=== PATIENT | female | born 1965 | race Caucasian/White ===

== ENCOUNTER → 2022-08-04 11:27 | Outpatient (CLI) | payer OTHER, SELFPAY | PROVIDERS: Family Provider Family Medicine; PCP Family Medicine; Visit Provider Nurse Practitioner Family | DX: R30.0 Dysuria (principal) | CPT/HCPCS: 87077; 87086; 87186 ==

== ENCOUNTER 2023-05-31 20:05 | Emergency (ER) | payer OTHER, SELFPAY ==
[2023-05-31] VITALS (9 sets, daily range): BP systolic 120–147; BP diastolic 56–68; PULSE 70–82; RESP 20–31; TEMP 37.2–38.3; O2SAT 94–96; BMI 32.9
[2023-05-31 20:47] LABS: Squamous Epithelial Cell Urine 0-1 /HPF (0-5/HPF); WBC Urine 1-5/HPF (0-5/HPF)
[2023-05-31 20:48] LABS: Bacteria Urine Occasional (0-1); Culture Indicated Urine Cult Not Indicated; RBC Urine 5-10/HPF (0-5/HPF)
[2023-05-31 21:07] LABS: Influenza A - CEPHEID Flu A NEGATIVE (NEGATIVE); Influenza B - CEPHEID Flu B NEGATIVE (NEGATIVE); Respiratory Syncytial Virus Negative (Negative)
[2023-05-31 21:09] LABS: COVID-19 CEPHEID 4-PLEX PCR Negative (Negative)
[2023-05-31 21:32] LABS: Strep Grp A by PCR Rapid Negative (Negative)
--- NOTE | 2023-05-31 21:38 | DI.RAD.S_ITS ---
PROCEDURE: XR CHEST 2V INDICATIONS: fever, TECHNIQUE: 2 views of the chest were acquired. COMPARISON: CR, XR CHEST 1 VIEW, 07/06/2019, 3:07. CR, XR CHEST 1 VIEW, 07/07/2019, 5:54. FINDINGS: Surgical changes and devices: Sternotomy and CABG. Lungs and pleura: Mild chronic pulmonary interstitial prominence. No focal consolidation. No pleural effusions or pneumothorax. Mediastinum: Mediastinal contours are normal. Heart size is normal. Bones and chest wall: No suspicious bony abnormalities. Soft tissues appear unremarkable. IMPRESSION: No acute cardiopulmonary abnormality is seen. Dictated by: Junior Hernandez M.D. on 05/31/2023 at 22:07 Approved by: Junior Hernandez M.D. on 05/31/2023 at 22:08
[2023-05-31 21:53] LABS: Add Manual Diff / Slide Review NO; Basophils Absolute Auto 100 /uL (0-100); Basophils Percent Auto 0.8 % (0-2); Eosinophils Absolute Auto 100 /uL (0-450); Eosinophils Percent Auto 0.7 % (2-4); Hematocrit 37.4 % (36-46); Hemoglobin 12.4 g/dL (12.0-16.0); Lymphocytes Absolute Auto 2100 /uL (1100-4500); Lymphocytes Percent Auto 17.4 % (25-40); Mean Corpuscular HGB Conc 33.1 % (30-36); Mean Corpuscular Hemoglobin 28.5 PG (26-34); Mean Corpuscular Volume 85.9 fL (80-100); Monocytes Absolute Auto 1300 /uL (0-900); Neutrophils Absolute Auto 8600 /uL (1500-7000); Neutrophils Percent Auto 70.1 % (50-75); Platelet Count 287 X10^3/uL (150-400); Red Blood Cell Count 4.35 X10^6/uL (4.0-5.2); Red Cell Distribution Width 13.8 % (11.6-14.8); White Blood Cell Count 12.2 X10^3/uL (4.5-11.0)
[2023-05-31 22:03] LABS: Alanine Aminotransferase 43 IU/L (<35); Albumin 4.2 g/dL (3.5-5.0); Albumin Globulin Ratio 1.2 (1.0-2.8); Alkaline Phosphatase 71 U/L (38-126); Aspartate Aminotransferase 40 IU/L (14-36); Bilirubin Total 0.9 mg/dL (0.2-1.3); Blood Urea Nitrogen 12 mg/dL (7-17); Calcium 9.6 mg/dL (8.4-10.2); Carbon Dioxide 25 mmol/L (22-32); Chloride 104 mmol/L (98-107); Estimated Glomerular Filt Rate > 60 mL/min (>60); Globulin 3.4 g/dL (1.7-4.1); Glucose 133 mg/dL (70-100); HEMOLYSIS < 15 (0-50); Potassium 3.7 mmol/L (3.4-5.1); Sodium 138 mmol/L (137-145); Total Protein 7.6 g/dL (6.3-8.2)
[2023-05-31 22:14] LABS: NT-proBNP (BNP-Adult 18+) 475 pg/mL (<125); Troponin I < 0.012 ng/mL (0.01-0.034)
--- NOTE | 2023-05-31 23:25 | ED.GENADULT ---
HPI - General Adult General Chief complaint: Fever Stated complaint: sick T-4/ neck stiff, fever Time Seen by Provider: 05/31/23 21:10 Source: patient Mode of arrival: Family Vehicle History of Present Illness HPI narrative: 57-year-old woman with a history of hypertension and hyperlipidemia presents with 4-5 days of viral type symptoms that seem to be getting worse. She complains of fatigue, dyspnea, neck pain related to her shoulder pain, headaches. She feels that she is been getting worse with fevers for the last 4 days. She describes no cough, no photophobia, does not have any nuchal rigidity, no nausea vomiting or diarrhea, no abdominal pain she has not noticed any rashes. There is no dysuria flank pain or vaginal discharge. Related Data Home Medications Medication Instructions Recorded Confirmed atorvastatin 10 mg tablet 10 mg PO DAILY 08/04/22 08/04/22 lisinopril 20 1 tab PO DAILY 08/04/22 08/04/22 mg-hydrochlorothiazide 25 mg tablet Previous Rx's Medication Instructions Recorded phenazopyridine 200 mg tablet 200 mg PO TID 6 doses #6 tabs 08/04/22 (Pyridium) Allergies Allergy/AdvReac Type Severity Reaction Status Date / Time simvastatin [From ZOCOR] AdvReac Severe LEG PAIN, Verified 05/31/23 21:16 STIFFNESS Review of Systems Review of Systems Narrative: Pertinent positive and negative findings as per HPI Patient History Medical History Hyperlipidemia Hypertension Social History Smoking Status: Never smoker Smoking Status: Never smoker Exam Initial Vital Signs Initial Vital Signs: Vital Signs Temperature 100.2 F H 05/31/23 20:11 Pulse Rate 82 05/31/23 20:11 Respiratory Rate 20 05/31/23 20:11 Blood Pressure 147/65 H 05/31/23 20:11 Pulse Oximetry 95 05/31/23 20:11 Oxygen Delivery Method Room Air 05/31/23 20:11 General: Appears to not feel well but in no acute distress. Able to give a complete and coherent history. Well-nourished well-developed HEENT: Moist mucous membranes, normal sclera with reactive pupils, mild scleral injection Neck: No significant cervical adenopathy, no pharyngeal erythema or exudate. Significant bilateral trapezius muscle spasm with pain extending up to the occipital insertions bilaterally right greater than left. Respiratory: Lungs are clear to auscultation, no wheezing no rales no rhonchi. Full and symmetrical air movement Cardiac: Regular rate and rhythm no murmurs no bruits Abdomen: Soft, nontender, good bowel tones, no flank pain Skin: Warm and dry, no rashes Neurologic: Grossly neurologically intact with no obvious asymmetries or abnormalities Extremities: No trauma, well perfused, no lower extremity edema Psych: Cooperative, appropriate insight and affect Course Orders Ordered: ED Orders 05/31/23 20:20 Covid-19 + FLU A/B + RSV - PCR Stat Urine Microscopic Stat 05/31/23 20:52 Strep Grp A by PCR Rapid Stat Throat Culture Stat 05/31/23 21:01 EKG-12 Lead Stat 05/31/23 21:38 XR chest 2V Stat 05/31/23 21:45 BNP [NT-proBNP (BNP-Adult 18+)] Stat Complete Blood Count AUTO DIFF Stat Comprehensive Metabolic Panel Stat Troponin I Stat Vital Signs Vital signs: Vital Signs - 8 hr 05/31/23 20:11 05/31/23 21:07 05/31/23 21:30 Temperature 100.2 F H 101 F H Pulse Rate 82 74 Respiratory Rate 20 31 H Blood Pressure 147/65 H 137/65 Pulse Oximetry 95 94 Oxygen Delivery Method Room Air 05/31/23 21:30 05/31/23 21:52 05/31/23 21:52 Temperature Pulse Rate 70 74 Respiratory Rate 23 20 Blood Pressure 131/68 Pulse Oximetry 94 95 Oxygen Delivery Method 05/31/23 22:00 05/31/23 22:00 05/31/23 22:30 Temperature Pulse Rate 70 Respiratory Rate 22 Blood Pressure 120/56 L 121/58 L Pulse Oximetry 95 Oxygen Delivery Method 05/31/23 22:30 05/31/23 22:59 05/31/23 23:00 Temperature 98.9 F Pulse Rate 71 72 Respiratory Rate 24 20 Blood Pressure 139/63 Pulse Oximetry 96 95 Oxygen Delivery Method Room Air Medical Decision Making Lab Data 05/31/23 21:45 05/31/23 21:45 Labs: Lab Results 05/31/23 05/31/23 05/31/23 Range/Units 20:20 20:52 21:45 WBC 12.2 H (4.5-11.0) X10^3/uL RBC 4.35 (4.0-5.2) X10^6/uL Hgb 12.4 (12.0-16.0) g/dL Hct 37.4 (36-46) % MCV 85.9 (80-100) fL MCH 28.5 (26-34) PG MCHC 33.1 (30-36) % RDW 13.8 (11.6-14.8) % Plt Count 287 (150-400) X10^3/uL Neut % (Auto) 70.1 (50-75) % Lymph % (Auto) 17.4 L (25-40) % Finney % (Auto) 11.0 (3-14) % Eos % (Auto) 0.7 L (2-4) % Baso % (Auto) 0.8 (0-2) % Neut # (Auto) 8600 H (7446-0344) /uL Lymph # (Auto) 2100 (8778-5125) /uL Finney # (Auto) 1300 H (0-900) /uL Eos # (Auto) 100 (0-450) /uL Baso # (Auto) 100 (0-100) /uL Sodium 138 (137-145) mmol/L Potassium 3.7 (3.4-5.1) mmol/L Chloride 104 (98-107) mmol/L Carbon Dioxide 25 (22-32) mmol/L BUN 12 (7-17) mg/dL Creatinine 0.50 L (0.52-1.04) mg/dL Estimated GFR > 60 (>60) mL/min BUN/Creatinine Ratio 24.0 H (6-22) Glucose 133 H (70-100) mg/dL Calcium 9.6 (8.4-10.2) mg/dL Total Bilirubin 0.9 (0.2-1.3) mg/dL AST 40 H (14-36) IU/L ALT 43 H (<35) IU/L Alkaline Phosphatase 71 (38-126) U/L Troponin I < 0.012 (0.01-0.034) ng/mL NT-Pro-B Natriuret Pep 475 H (<125) pg/mL Total Protein 7.6 (6.3-8.2) g/dL Albumin 4.2 (3.5-5.0) g/dL Globulin 3.4 (1.7-4.1) g/dL Albumin/Globulin Ratio 1.2 (1.0-2.8) Urine RBC 5-10/hpf H (0-5/HPF) Urine WBC 1-5/hpf (0-5/HPF) Ur Squamous Epith Cells 0-1 /hpf (0-5/HPF) Urine Bacteria Occasional (0-1) (None) Ur Culture Indicated? Cult not indicated SARS-CoV-2 (PCR) Negative (Negative) Influenza A (RT-PCR) Flu a negative (NEGATIVE) Influenza B (RT-PCR) Flu b negative (NEGATIVE) RSV (PCR) Negative (Negative) Group A Strep (PCR) Negative (Negative) Urine Dip Bedside Urine Glucose Negative Bedside Urine Bilirubin - Negative Bedside Urine Ketone - Negative Urine Specific Arbuckle 1.015 Bedside Urine Occult Blood +++ Bedside Urine pH 6.5 Bedside Urine Protein ++ 100 Bedside Urine Urobilinogen - Negative Bedside Urine Nitrite - Negative Bedside Urine Leukocytes - Negative Esterase Point of care testing: Urine Dip Bedside Urine Glucose Negative Bedside Urine Bilirubin - Negative Bedside Urine Ketone - Negative Urine Specific Arbuckle 1.015 Bedside Urine Occult Blood +++ Bedside Urine pH 6.5 Bedside Urine Protein ++ 100 Bedside Urine Urobilinogen - Negative Bedside Urine Nitrite - Negative Bedside Urine Leukocytes - Negative Esterase MDM Narrative Medical decision making narrative: CC: Fevers, dyspnea, body aches Complicating co-morbidities: Hypertension, hyperlipidemia Data collected from: patient Differential considered: Viral syndrome, pneumonia, meningitis, sepsis, urinary tract infection, pyelonephritis Exam documented above, pertinent findings include: She appears to generally feel unwell but remainder of exam is entirely nonfocal. Headache is related to the significant trapezius muscle spasm with no signs or symptoms of meningitis. Lungs are completely clear abdomen is benign Lab Test results independently reviewed as above. Pertinent findings: COVID/RSV/influenza a and B are all negative CBC shows a mild leukocytosis at 12.2 without significant left shift. Chemistries show normal renal function, slightly elevated AST at 40 and ALT at 43. BNP is minimally elevated at 475 Troponin is undetectable Urine demonstrates 5-10 red cells but no other findings to suggest urinary tract infection Rapid strep test is negative Independently reviewed EKG: EKG shows sinus rhythm at a rate of 74 no significant ischemic changes Imaging studies independently reviewed: Chest x-ray is unremarkable Treatments: Toradol parenterally and Tylenol are given Discussion: 57-year-old woman who is most likely presenting with an acute viral illness. She is not showing any signs of sepsis, significant cardiac abnormalities, intra-abdominal infection, kidney or bladder infection, bacterial pneumonia, cellulitis and no nuchal rigidity to suggest meningitis. She is tried only Tylenol to help with fevers and myalgias. At this point I am not finding alternate explanations or bacterial etiology has not the underlying cause of her symptoms. Findings reviewed with her. Did share with her that she does not have RSV COVID or influenza however I suspect she does have an alternate viral syndrome. Findings are reviewed with her along with recommendations for supportive management. At this point I believe she is safe for home discharge did review reasons to return to the emergency department. Questions are answered and she is discharged home Discharge Plan Departure Patient Disposition: Home Clinical Impression: Viral infection Instructions: DI for Viral Upper Respiratory Infection -- Adult Activity Restrictions/Additional Instructions: Thank you for coming in today I am sorry that you are feeling so poorly. Your workup today does not suggest any evidence for sepsis, strep throat, bacterial pneumonia, appendicitis or other intra-abdominal problems, urinary tract infection or kidney infection. I am seeing no signs of cellulitis or other skin infections. We did test for COVID, RSV and influenza and these for viruses were not found however, there are multiple other viruses that were currently seeing in the community and I suspect you are experiencing 1 of these. Using 400 mg of ibuprofen (2 [id number] pills) and 1 Tylenol every 6 hours can be very helpful in controlling pain and fevers. At this point there is no indication for antibiotics or additional imaging studies and you do not need to be in the hospital. However, if symptoms are changing or worsening in any way I would encourage you to return and we will happily re-evaluate Prescriptions: No Action atorvastatin 10 mg tablet 10 mg PO DAILY lisinopril-hydrochlorothiazide 20-25 mg tablet 1 tab PO DAILY phenazopyridine [Pyridium] 200 mg tablet 200 mg PO TID 0 Days Qty: 6 0RF Referrals: Skye Liriano PA-C [Primary Care Provider] - Stand Alone Forms: Patient Portal/API
[2023-05-31] MEDS: KETOROLAC 30 MG/ML VIAL 15 MG IV (23:41)
[2023-05-31] MEDS: ACETAMINOPHEN 325 MG TABLET 650 MG PO (23:42)
== END 2023-05-31 23:58 | disposition home or self-care (01) ==
PROVIDERS: Emergency Provider Emergency Medicine; Family Provider Family Medicine; PCP Physician Assistant
DX: B34.9 Viral infection, unspecified (principal); Z20.822 Contact with and (suspected) exposure to COVID-19
CPT/HCPCS: 0241U; 36415; 71046; 80053; 81003; 81015; 83880; 84484; 85025; 87070; 87651; 93005; 96374; 99284; J1885

== ENCOUNTER → 2024-01-28 08:27 | Outpatient (CLI) | payer OTHER, SELFPAY ==
--- NOTE | 2024-01-28 08:28 | DI.US.S_ITS ---
PROCEDURE: US CAROTID DOPPLER BI INDICATIONS: BILATERAL CAROTID ARTERY STENOSIS TECHNIQUE: Color and pulse Doppler interrogation was performed of both carotid systems, with image documentation and velocity measurements. COMPARISON: None. FINDINGS: Stenosis calculations are based on SRU (Society [employer] in Ultras[employer]) criteria. Right side: Brachial blood pressure: 143/79 mm Hg. Common carotid artery peak systolic velocity: 95 cm/sec. Internal carotid artery peak systolic velocity: 95 cm/sec. Internal carotid artery end diastolic velocity: 33 cm/sec. External carotid artery peak systolic velocity: 106 cm/sec. ICA/CCA peak systolic ratio: 1.0 . Ramirez scale imaging description: No significant plaque Percent internal carotid artery stenosis: Normal . Vertebral artery: Flow direction is antegrade. Left side: Brachial blood pressure: 135/63 mm Hg. Common carotid artery peak systolic velocity: 93 cm/sec. Internal carotid artery peak systolic velocity: 92 cm/sec. Internal carotid artery end diastolic velocity: 21 cm/sec. External carotid artery peak systolic velocity: 17 cm/sec. ICA/CCA peak systolic ratio: 1.0 . Ramirez scale imaging description: No significant plaque Percent internal carotid artery stenosis: Normal . Vertebral artery: Flow direction is antegrade. IMPRESSION: No evidence of significant internal carotid artery stenosis bilaterally Dictated by: Ochoa Espinosa M.D. on 01/28/2024 at 13:16 Approved by: Ochoa Espinosa M.D. on 01/28/2024 at 13:44
== END ==
PROVIDERS: Family Provider Family Medicine; PCP Physician Assistant; Referring Provider Internal Medicine Cardiovascular Disease; Visit Provider Internal Medicine Cardiovascular Disease
DX: I65.23 Occlusion and stenosis of bilateral carotid arteries (principal)
CPT/HCPCS: 93880